=== PATIENT | female | born 1970 | race Hispanic/Latino ===

== ENCOUNTER 2025-05-06 20:16 | Emergency (ER) | payer OTHER ==
[~2025-05-06] VITALS: Ht 162.6 cm; Wt 104.0 kg
[~2025-05-06 20:16] MED LIST: IBUPROFEN200 M1 PO; NORCO 5-325 TA1 EACH PO; OMEPRAZOLE40 MG PO; PRENATAL VITAM1 EAC3 PO
[2025-05-06] MEDS ORDERED: SULFAMETHOXAZO1 EAC1 PO (20:27)
[2025-05-06] MEDS ORDERED: HYDROCODON-ACE1 EA10 PO (20:42)
[2025-05-06] MEDS ORDERED: ACYCLOVIR800 MG PO (20:42)
[2025-05-06] MEDS ORDERED: GABAPENTIN300 MG PO (20:42)
[2025-05-06] MEDS ORDERED: GABAPENTIN 300 MG CAP PO ONE (20:45)
[2025-05-06] MEDS ORDERED: ACYCLOVIR 400 MG TAB PO ONE (20:45)
[2025-05-06] MEDS ORDERED: OXYCODONE/APAP 5/325 TAB PO ONE (20:45)
[2025-05-06 20:51] VITALS: BP 130/53
== END 2025-05-06 20:51 | disposition home or self-care (01) ==
LOC: ED 20:16
DX: B02.9 Zoster without complications (principal); Z88.0 Allergy status to penicillin
CPT/HCPCS: 99283; A9270